=== PATIENT | male | born 1985 | race Caucasian/White ===

== ENCOUNTER 2021-11-26 00:10 | Emergency (ER) | payer MEDICAID ==
[~2021-11-26] VITALS: Ht 172.7 cm; Wt 77.0 kg
[2021-11-26 00:14] VITALS: BP 168/93
[2021-11-26 01:02] LABS: BASOPHILS % 0.5 % (0.0-2.0); EOSINOPHILS % 0.1 % (0.0-5.0); HEMATOCRIT. 38.8 % (42.0-52.0); HEMOGLOBIN. 13.5 g/dL (14.0-18.0); LYMPHOCYTES % 21.1 % (20.0-50.0); MEAN CORPUSCULAR VOLUME 88.8 fL (80.0-94.0); MONOCYTES % 8.2 % (2.0-8.0); NEUTROPHILS % 70.1 % (40.0-76.0); PLATELET 290 x1000/uL (130-400); RED BLOOD CELL COUNT 4.36 mill/uL (4.7-6.1); RED CELL DISTRIBUTION WIDTH 12.9 % (11.6-14.6)
[2021-11-26 01:08] LABS: CHLORIDE 107 mEq/L (98-107)
[2021-11-26 01:16] LABS: ETHANOL BLOOD < 10 mg/dL
== END 2021-11-26 04:32 | disposition home or self-care (01) ==
LOC: ER 00:10
DX: R45.851 Suicidal ideations (principal); F22 Delusional disorders; F20.9 Schizophrenia, unspecified; F17.290 Nicotine dependence, other tobacco product, uncomplicated; F15.10 Other stimulant abuse, uncomplicated; Z20.822 Contact with and (suspected) exposure to COVID-19
CPT/HCPCS: 36415; 80053; 80320; 85025; 99283; C9803; U0003; U0005; G0480